=== PATIENT | male | born 1970 | race Caucasian/White ===

== ENCOUNTER 2022-01-26 10:01 | Day surgery (SDC) | payer OTHER ==
[2022-01-23 13:21] LABS: BASOPHILS % (AUTO) 0.6 % (0-1); EOSINOPHILS # (AUTO) 0.2 X10'3 (0-0.9); EOSINOPHILS % (AUTO) 2.9 % (0-6); LYMPHOCYTES # (AUTO) 1.6 X10'3 (1.1-4.8); LYMPHOCYTES % (AUTO) 20.4 % (21-51); MEAN CORPUSCULAR HEMOGLOBIN 29.1 PG (27.0-31.0); MEAN CORPUSCULAR HGB CONC 33.9 g/dL (33.0-36.5); MEAN CORPUSCULAR VOLUME 85.9 FL (78-98); MEAN PLATELET VOLUME 9.7 FL (7.4-10.4); MONOCYTES # (AUTO) 0.7 X10'3 (0-0.9); MONOCYTES % (AUTO) 8.8 % (2-12); NEUTROPHILS # (AUTO) 5.2 X10'3 (1.8-7.7); NEUTROPHILS % (AUTO) 67.3 % (42-75); PRE OP HEMATOCRIT 45.7 % (42.0-52.0); PRE OP HEMOGLOBIN 15.5 g/dL (14.0-17.9); PRE OP PLATELET COUNT 201 X10'3 (140-440); RED BLOOD COUNT 5.32 X10'6 (4.70-6.10); RED CELL DISTRIBUTION WIDTH 13.1 % (11.5-14.5)
[2022-01-23 13:32] LABS: ALBUMIN 3.8 G/DL (3.4-5.0); ALBUMIN/GLOBULIN RATIO 1.2 (1.1-1.5); ALKALINE PHOSPHATASE 88 IU/L (46-116); BLOOD UREA NITROGEN 11 MG/DL (7-18); BUN/CREATININE RATIO 14.1 (5.4-32.0); CALCIUM 8.6 MG/DL (8.5-10.1); CHLORIDE 107 MMOL/L (99-107); CREATININE 0.78 MG/DL (0.60-1.10); PRE OP ALT 29 U/L (30-65); PRE OP ANION GAP 6 (8-16); PRE OP AST 9 U/L (10-37); PRE OP BILIRUB, TOTAL 0.6 MG/DL (0.0-1.0); PRE OP GLUCOSE 101 MG/DL (70-104); PRE OP POTASSIUM 4.2 MMOL/L (3.4-5.1); PRE OP SODIUM 144 MMOL/L (135-145); TOTAL CARBON DIOXIDE 31.2 MMOL/L (24-32); TOTAL PROTEIN 7.1 G/DL (6.4-8.2); eGFR > 90 ML/MIN
[~2022-01-26] VITALS: Ht 167.6 cm; Wt 74.3 kg
[2022-01-26] VITALS (12 sets, daily range): BP systolic 109–131; BP diastolic 72–90
[~2022-01-26 10:01] MED LIST: ATOR20TA66 PO; ceFAZolin inj. 2,000 MG in dextrose 5%-water 100 ML IV ONE; famotidine 20mg tablet PO ONE; meperidine/PF 25mg/ml syringe IV PRN; morphine 2 MG/ML inj. syringe IV PRN; morphine 4 MG/ML inj SYRINge IV PRN; ondansetron/PF 4mg/2ml inj IV PRN; proCHLORperazine 10 MG/2 ml inj IV PRN; ringers solution, lacted 1,000 ML IV SCH
[2022-01-26] MEDS ORDERED: LIDOcaine 1% 30ml preserv. free vial ONE (11:02)
[2022-01-26] MEDS ORDERED: BUPIVAcaine/PF 7.5mg/ml (0.75%) 10ml vial ONE (11:02)
[2022-01-26] MEDS ORDERED: fentaNYL/PF 50MCG/1 ML 2ML syringe ONE (11:30)
[2022-01-26] MEDS ORDERED: dexamethasone sod phosphate 10mg/ml inj ONE (11:30)
[2022-01-26] MEDS ORDERED: sevoflurane 250ml liquid IH ONE (11:30)
[2022-01-26] MEDS ORDERED: midazolam 1 mg/ML 2ml injection ONE (11:30)
[2022-01-26] MEDS ORDERED: rocuronium 10mg/ml inj IV ONE (11:37)
[2022-01-26] MEDS ORDERED: propofol inj 20 ML IV ONE (11:37)
[2022-01-26] MEDS ORDERED: LIDOcaine 2% (20mg/ml) 5ml vial ONE (11:37)
[2022-01-26] MEDS ORDERED: acetaminophen 1,000mg/100ml IV 100 ML IV ONE (12:30)
[2022-01-26] MEDS ORDERED: ondansetron/PF 4mg/2ml inj ONE (12:34)
[2022-01-26] MEDS ORDERED: glycopyrrolate 0.2mg/ml inj ONE (12:37)
[2022-01-26] MEDS ORDERED: neostigmine methylsulfate 1 MG/ML 10ml vial ONE (12:37)
--- NOTE | 2022-01-26 12:59 | NUR ---
Received from OR via [facility], accompanied by Anesthesiologist DR HAMMONDS and report given by Anesthesiologist. PT DROWSY W/ORAL AIRWAY, ABDOMEN W 3 LAP SITES W/BANDAIDS CDI. PT AWAKENED, ORAL AIRWAY D/CD. Addendum: 01/26/22 at 1318 by Jessica Fontanez RN Amended: Links added.
[2022-01-26] MEDS ORDERED: HYDROcodone/acetaminophen 5mg/325mg tablet PO PRN (13:00)
--- NOTE | 2022-01-26 15:14 | NUR ---
PT UP AND ABLE TO AMBULATE SAFELY, STATED PAIN WAS 3/10 AND THAT HE WOULD LIKE A PAIN PILL FOR THE DRIVE HOME. PT VOIDED, NORCO 5/325 MG GIVEN ORDERED. D/C INSTRUCTIONS GIVEN AND GONE OVER W/PT WHO VERBALIZED UNDERSTANDING. PT D/CD TO HOME VIA W/C TO PRIVATE VEHICLE W/O INCIDENT. Addendum: 01/26/22 at 1638 by Jessica Fontanez RN Amended: Links added.
== END 2022-01-26 15:14 | disposition home or self-care (01) ==
LOC: PRE-OP 10:01
PROVIDERS: ATTEND Surgery
DX: K40.20 Bilateral inguinal hernia, without obstruction or gangrene, not specified as recurrent (principal); E78.5 Hyperlipidemia, unspecified; G47.30 Sleep apnea, unspecified; Z98.890 Other specified postprocedural states; Z79.899 Other long term (current) drug therapy; Z72.89 Other problems related to lifestyle
CPT/HCPCS: 36415; 49650; 80053; 82948; 85025; 93005; C1781; J0131; J0690; J1100; J2250; J2405; J2704; J2710; J3010; J3490; J7030; J7060; J7120; S2900; Z7506; Z7508; Z7512; A4215; A4618